=== PATIENT | female | born 1995 | race Caucasian/White ===

== ENCOUNTER 2017-01-10 12:43 | Emergency (ER) | payer MEDICAID ==
[2017-01-10] MEDS ORDERED: KETOROLAC 60 MG/2 ML VIAL IVP STA (13:09)
[2017-01-10] MEDS ORDERED: SODIUM CHLORIDE 0.9% 1,000 ML IV ONE ×3 (13:09→15:06)
[2017-01-10] MEDS ORDERED: KETOROLAC 30 MG/ML VIAL ONE (13:15)
[2017-01-10] MEDS ORDERED: ONDANSETRON 4 MG/2 ML VIAL ONE ×2 (13:23→15:32)
[2017-01-10] MEDS ORDERED: ONDANSETRON 4 MG/2 ML VIAL IVP STA ×2 (13:23→15:28)
[2017-01-10] MEDS ORDERED: PROMETHAZINE 25 MG/1 ML VIAL ONE ×2 (14:21→15:07)
[2017-01-10] MEDS ORDERED: PROMETHAZINE INJ 12.5 MG in SODIUM CHLORIDE 0.9% 50 ML IV STA ×2 (14:22→15:06)
== END 2017-01-10 16:20 | disposition home or self-care (01) ==
DX: N13.2 Hydronephrosis with renal and ureteral calculous obstruction (principal); R03.0 Elevated blood-pressure reading, without diagnosis of hypertension; F17.200 Nicotine dependence, unspecified, uncomplicated

== ENCOUNTER 2017-11-09 08:00 | Outpatient (CLI) | payer OTHER | END 2017-11-09 08:01 | disposition home or self-care (01) | LOC: LAB.R 08:00 | PROVIDERS: ATTEND Registered Nurse | DX: Z11.3 Encounter for screening for infections with a predominantly sexual mode of transmission (principal) | CPT/HCPCS: 87491; 87591 ==